=== PATIENT | female | born 2000 | race Caucasian/White ===

== ENCOUNTER 2023-02-27 21:23 | Emergency (ER) | payer OTHER ==
[2023-02-27] MEDS ORDERED: DIPHENHYDRAMINE 50 MG/ML VIAL ONE (22:08)
[2023-02-27] MEDS ORDERED: NA CHLORIDE 0.9% 1,000 ML ONE (22:08)
[2023-02-27] MEDS ORDERED: ONDANSETRON 4 MG/2 ML VIAL ONE (22:08)
[2023-02-27 22:23] LABS: Absolute Lymphocytes (CBC) 1.9 K/uL (0.7-4.9); Hematocrit 36.2 % (36.0-45.0); Lymphocytes % 25.1 % (15.3-44.8); MCV 92.3 fL (80-100); Platelets 251 thou/uL (152-406); RBC Red Blood Cell Count 3.92 M/uL (3.86-4.86)
[2023-02-27 23:06] LABS: Potassium 3.3 mEq/L (3.5-5.1)
[2023-02-28 00:49] LABS: Urine Bacteria None Seen /HPF (<20); Urine Bilirubin NEGATIVE (Negative); Urine Blood Negative (Negative); Urine Clarity Extremely Turbid (Clear); Urine Color Light-Yellow (Yellow); Urine Glucose NEGATIVE (Negative); Urine Mucus 2+ /HPF (None Seen); Urine Protein TRACE (Negative); Urine RBC <5 /HPF (None Seen); Urine Urobilinogen Normal (Normal); Urine pH 6.5 (5.0-7.0)
--- NOTE | 2023-02-28 00:52 | EDPHYS ---
Physician Documentation [facility] Name: Preet Zuniga Age: 22 yrs Sex: Female : 2000 Arrival Date: 02/27/2023 Time: 21:23 Bed 19 Private MD: ED Physician Vernon Gibson HPI: 02/27 21:37 This 22 yrs old Female presents to ER via Ambulatory with complaints of 9wks ec2 , Passed Out Prior To Arrival, Vomiting. 21:37 Patient arrives today due to concern for nausea and vomiting along with decreased p.o. ec2 intake. Patient reports that she is approximately 7 weeks , states that she has not had care at this time, is scheduled to have care with her first appointment tomorrow. Patient reports decreased p.o. intake, states that she has had a poor appetite, states that she had passed out earlier today. States that she felt generally tired and generally weak and subsequently passed out/fell asleep on the couch. No falls or injuries. Patient denies any chest pain. Patient reports some minimal abdominal discomfort. Patient reports no urinary problems. Patient reports no cough or cold symptoms. Patient reports no significant medical problems. . Historical: - Allergies: 21:35 No Known Allergies; ap3 - Home Meds: 21:35 None [Active]; ap3 - PMHx: 21:35 None; ap3 - Social history:: Smoking status: Patient denies any tobacco usage or history of. ROS: 21:37 Constitutional: malaise, n/v ec2 Exam: 21:39 Constitutional: GEN: NAD Head: atraumatic Eyes: EOMI Ears: External ears are ec2 normal. CV: regular rate LUNGS: no respiratory distress ABD: non-distended, soft, nontender, no guarding, nonrigid SKIN: no evidence of rashes MSK: no evidence of trauma NEURO: moves all extremities equally Vital Signs: 21:33 BP 124 / 84; Pulse 76; Resp 18; Temp 98.2; Pulse Ox 100% ; ap3 22:21 BP 121 / 82; Pulse 84; Resp 16; Pulse Ox 100% ; jj7 23:36 BP 99 / 66; Pulse 74; Resp 16; Pulse Ox 100% ; Pain 0/10; jj7 02/28 00:44 BP 100 / 67; Pulse 73; Resp 16; Pulse Ox 100% ; Pain 0/10; jj7 23:36 Pain Scale: Adult jj7 02/28 00:44 Pain Scale: Adult jj7 MDM: 02/27 21:30 Patient medically screened. ec2 21:39 ED course: Patient arrives today due to concern for decreased p.o. intake as well as a ec2 syncopal episode with associated abdominal cramping. Examination markable well-appearing nontoxic dividual no acute distress. Will obtain lab work, EKG, urine studies as well as ultrasound. Currently considering process such as complication, hyperemesis gravidarum, electrolyte disturbances, arrhythmia.. 22:55 ED course: EKG independently reviewed and interpreted by me, shows normal sinus rhythm, ec2 rate of 70, no acute ST segment elevations, nonconcerning intervals.. 02/28 00:35 ED course: Ultrasound shows single live intrauterine estimated at ec2 approximately 7 weeks and 5 days. Metabolic profile shows slight hypokalemia with a potassium of 3.3. Patient with appropriate GFR, CBC without evidence of anemia, hCG appropriately detectable. . 00:51 ED course: Urine with ketones present, consistent with hyperemesis gravidarum. No ec2 bacteria present, noninfectious otherwise. Will discharge home with prescription for Zofran. Return precautions given. . 00:52 Data reviewed: vital signs. ec2 02/27 21:37 Order name: Basic Metabolic Panel; Complete Time: 23:15 ec2 02/27 21:37 Order name: CBC with Diff; Complete Time: 23:15 ec2 02/27 21:40 Order name: Urinalysis w/ reflexes; Complete Time: 00:50 ec2 02/27 22:21 Order name: HCG, Quantitative; Complete Time: 23:15 EDMS 02/27 22:54 Order name: Transvaginal OB EDMS 02/27 21:37 Order name: EKG; Complete Time: 21:38 ec2 02/27 21:37 Order name: Cardiac monitoring ec2 02/27 21:37 Order name: EKG - Nurse/Tech; Complete Time: 22:41 ec2 02/27 21:37 Order name: IV Saline Lock; Complete Time: 22:17 ec2 02/27 21:37 Order name: Labs collected and sent; Complete Time: 22:18 ec2 02/27 21:37 Order name: O2 Per Protocol; Complete Time: 22:18 ec2 02/27 21:37 Order name: O2 Sat Monitoring; Complete Time: 22:18 ec2 Administered Medications: 02/27 22:18 Drug: diphenhydrAMINE IVP 25 mg IVP once Route: IVP; Site: right antecubital; jj7 22:30 Follow up: Response: Marked relief of symptoms 7 22:19 Drug: NS 0.9% IV 1000 ml IV at 1 bolus Per protocol; 1000 mL bolus Route: IV; Rate: 1 jj7 bolus; Site: right antecubital; 23:39 Follow up: IV Status: Completed infusion j 22:19 Drug: Ondansetron IVP 4 mg IVP once; over 2 minutes Route: IVP; Site: right antecubital;jj7 22:30 Follow up: Response: Marked relief of symptoms jj7 Disposition Summary: 02/28/23 00:51 Discharge Ordered Notes: Location: Home ec2 Condition: Stable ec2 Diagnosis - Mild hyperemesis gravidarum ec2 Discharge Instructions: - Discharge Summary Sheet ec2 - Hyperemesis Gravidarum ec2 Forms: - Medication Reconciliation Form ec2 - Thank You Letter ec2 - Antibiotic Education ec2 - Prescription Opioid Use ec2 - Patient Portal Instructions ec2 - Leadership Thank You Letter ec2 Prescriptions: - Zofran 4 mg Oral Tablet - take 1 tablet ORAL route every 12 hours As needed; 20 tablet; Refills: 0, ec2 Product Selection Permitted Signatures: Dispatcher [employer] Shelly Kerns RN RN ap3 Leon Ryder RN RN jj7 Vernon Gibson MD MD ec2 Corrections: (The following items were deleted from the chart) 22:21 21:40 QUANTITATIVE HCG+C.LAB.BRZ ordered. EDMS EDMS 22:54 21:38 OB Limited+US.RAD.BRZ ordered. EDMS EDMS
--- NOTE | 2023-02-28 00:52 | ER ---
Nurse's Notes [facility] Name: Preet Zuniga Age: 22 yrs Sex: Female : 2000 Arrival Date: 02/27/2023 Time: 21:23 Bed 19 Private MD: Diagnosis: Mild hyperemesis gravidarum Presentation: 02/27 21:33 Chief complaint: Patient states: she is in her first trimester of , and has ap3 been nauseous. Patient states she has been feeling weak since the start of her , but was feeling like she could do cleaning today. Afterwards patient reports feeling weak, sat down, and was unable to hold her head up and keep her eyes open. Patient is unsure if she passed out or fell asleep at this point. Coronavirus screen: At this time, the client does not indicate any symptoms associated with coronavirus-19. Ebola Screen: No symptoms or risks identified at this time. Initial Sepsis Screen: Does the patient meet any 2 criteria? No. Patient's initial sepsis screen is negative. Does the patient have a suspected source of infection? No. Patient's initial sepsis screen is negative. Risk Assessment: Do you want to hurt yourself or someone else? Patient reports no desire to harm self or others. Onset of symptoms is unknown. 21:33 Method Of Arrival: Ambulatory ap3 21:33 Acuity: BENITO 3 ap3 Triage Assessment: 21:35 General: Appears ill, Behavior is calm, cooperative, appropriate for age. Pain: Denies ap3 pain. Neuro: Level of Consciousness is awake, alert, obeys commands, Oriented to person, place, time, situation, Reports weakness. Cardiovascular: Patient's skin is warm and dry. Respiratory: Airway is patent Respiratory effort is even, unlabored, Respiratory pattern is regular, symmetrical. GI: Reports nausea, vomiting. Historical: - Allergies: 21:35 No Known Allergies; ap3 - Home Meds: 21:35 None [Active]; ap3 - PMHx: 21:35 None; ap3 - Social history:: Smoking status: Patient denies any tobacco usage or history of. Screenin:36 [facility] ED Fall Risk Assessment (Adult) History of falling in the last 3 months, ap3 including since admission No falls in past 3 months (0 pts). Abuse screen: Denies threats or abuse. Nutritional screening: No deficits noted. Tuberculosis screening: No symptoms or risk factors identified. Assessment: 22:10 General: Appears in no apparent distress. comfortable, Behavior is calm, cooperative, jj7 appropriate for age. Neuro: No deficits noted. GI: Reports nausea. Vital Signs: 21:33 BP 124 / 84; Pulse 76; Resp 18; Temp 98.2; Pulse Ox 100% ; ap3 22:21 BP 121 / 82; Pulse 84; Resp 16; Pulse Ox 100% ; jj7 23:36 BP 99 / 66; Pulse 74; Resp 16; Pulse Ox 100% ; Pain 0/10; jj7 02/28 00:44 BP 100 / 67; Pulse 73; Resp 16; Pulse Ox 100% ; Pain 0/10; jj7 23:36 Pain Scale: Adult jj7 02/28 00:44 Pain Scale: Adult jj7 ED Course: 02/27 21:28 Patient arrived in ED. mr 21:30 Vernon Gibson MD is Attending Physician. ec2 21:35 Triage completed. ap3 21:36 Arm band placed on right wrist. ap3 21:49 Leon Ryder, KARISSA is Primary Nurse. jj7 22:10 Patient has correct armband on for positive identification. Bed in low position. Call jj7 light in reach. Adult w/ patient. 22:10 Inserted saline lock: 20 gauge in right antecubital area, using aseptic technique. jj7 Blood collected. 22:18 Basic Metabolic Panel Sent. jj7 22:18 CBC with Diff Sent. jj7 22:54 Transvaginal OB In Process Unspecified. EDMS 02/28 00:56 Provided Education on: DISCHARGE. jj7 00:56 No provider procedures requiring assistance completed. IV discontinued, intact, jj7 bleeding controlled, No redness/swelling at site. Pressure dressing applied. Administered Medications: 02/27 22:18 Drug: diphenhydrAMINE IVP 25 mg IVP once Route: IVP; Site: right antecubital; jj7 22:30 Follow up: Response: Marked relief of symptoms jj7 22:19 Drug: NS 0.9% IV 1000 ml IV at 1 bolus Per protocol; 1000 mL bolus Route: IV; Rate: 1 jj7 bolus; Site: right antecubital; 23:39 Follow up: IV Status: Completed infusion 7 22:19 Drug: Ondansetron IVP 4 mg IVP once; over 2 minutes Route: IVP; Site: right antecubital;jj7 22:30 Follow up: Response: Marked relief of symptoms j7 Medication: 21:37 VIS not applicable for this client. ap3 Outcome: 02/28 00:51 Discharge ordered by . ec2 00:56 Discharged to home ambulatory, with significant other, jj7 00:56 Condition: improved 00:56 Discharge instructions given to patient, Instructed on discharge instructions, medication usage, Demonstrated understanding of instructions, medications, Prescriptions given X 1, 00:59 Patient left the ED. jj7 Signatures: Dispatcher [employer] Jennifer Funk, [facility] Shelly Cruz RN RN ap3 Leon Ryder RN RN jj7 Vernon Gibson MD MD ec2
[2023-02-28 02:22] VITALS: TEMP 98.2; O2SAT 100
[2023-02-28 02:39] VITALS: BP 100/67
--- NOTE | 2023-02-28 13:37 | EKG ---
Test Date: 2023-02-27 Test Time: 22:35:29 Icu Staff Nurse: JULIA MEASUREMENT RESULTS: Intervals: Rate: 70 CT: 126 QRSD: 90 QT: 406 QTc: 438 Stevenson: P: 76 CT: 126 QRS: 85 T: 53 INTERPRETIVE STATEMENTS: Normal sinus rhythm Normal ECG No previous ECG available for comparison Electronically Signed On 02-28-23 13:36:09 CDT by Devan Estrella
--- NOTE | 2023-02-28 14:37 | RAD REPORT ---
EXAM DESCRIPTION: US - Transvaginal OB - 02/27/2023 10:53 pm CLINICAL HISTORY: ABD CRAMPING, TECHNIQUE: Real-time transvaginal obstetrical ultrasound of the maternal pelvis and a first trimeste r with image documentation. Transvaginal imaging was used for better evaluation of the fe tus and adnexa. COMPARISON: No relevant prior studies available. FINDINGS: Gestation: Single intrauterine gestational sac. The crown-rump length measures 13.9 mm corresponding to an estimated gestational age of 7 weeks 5 days. cardiac activity measures 1 62 BPM. A small yolk sac is present. Placenta/amniotic fluid: Cannot be adequately evaluated due to the early gestational age. Uterus/cervix: The uterus is anteverted and measures 8.1 x 5 x 5.8 cm. No myometrial mass. Ovaries: Right and left ovarian measurements are 2.3 x 2.5 x 2.6 cm and 2.2 x 1.2 x 2.2 cm, respect ively. No mass. Free fluid: Small amount of free fluid in cul-de-sac. IMPRESSION: 1. Single live intrauterine gestation. No focal complication. 2. Estimated gestational age by ultrasound is 7 weeks 5 days. 3. Estimated due date by ultrasound is 10/11/2023. Electronically signed by: Yanira Velasquez MD 02/27/2023 11:44 PM CDT Due to temporary technical issues with the PACS/Fluency reporting system, reports are being signed by the in house radiologists without review as a courtesy to insure prompt reporting. The interpreting radiologist is fully responsible for the content of the report.
== END 2023-02-28 00:59 | disposition home or self-care (01) ==
LOC: ER 21:23
DX: O21.0 Mild hyperemesis gravidarum (principal)
CPT/HCPCS: 96361; 93005; 85025; 81001; 80048; 36415; 84702; 76817; 96375; 96374; 99284; J1200; J2405; J7030